=== PATIENT | female | born 1980 | race Caucasian/White ===

== ENCOUNTER 2018-08-17 04:45 | Emergency (ER) | payer OTHER ==
[~2018-08-17] VITALS: Ht 170.2 cm; Wt 117.9 kg
--- NOTE | 2018-08-17 04:45 | NUR ---
PT BIBA BLS. TAKEN TO BED 9
[2018-08-17 04:49] VITALS: BP 178/93
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
--- NOTE | 2018-08-17 05:05 | NUR ---
Dr. Chiu examining patient.
[2018-08-17] MEDS ORDERED: KETOROLAC 30 MG/ML VIAL IM ONE (05:10)
[2018-08-17] MEDS ORDERED: NYSTATIN POW 100 MU/GM 15 GM BTL TP STA (05:31)
--- NOTE | 2018-08-17 05:34 | NUR ---
X-Ray at bedside.
--- NOTE | 2018-08-17 05:34 | NUR ---
XRAY AT BEDSIDE.
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
[2018-08-17] MEDS ORDERED: HYDROcodone/APAP 5/325 MG 1 TAB TAB PO ONE (06:10)
--- NOTE | 2018-08-17 07:23 | NUR ---
REPORT GIVEN TO KAMILA HOYT AND KAMILA CORCORAN.
--- NOTE | 2018-08-17 07:25 | NUR ---
RECEIVED REPORT FROM PM NURSE AT BEDSIDE. PT PENDING FOR DISCHARGE. CONTACTING HER FAMILY FOR WHEEL CHAIR. PT ALERT AND OREINT, COMMUNICATING.
--- NOTE | 2018-08-17 07:35 | NUR ---
[facility] CALLED FOR PICK-UP, ETA 2HRS.
--- NOTE | 2018-08-17 08:22 | NUR ---
PT EATING BREAKFAST.
[2018-08-17 10:02] VITALS: BP 153/87
--- NOTE | 2018-08-17 10:02 | NUR ---
Patient discharged with v/s stable. Written and verbal after care instructions given and explained. Patient alert, oriented and verbalized understanding of instructions. Wheel Chair Assisted with to car. All questions addressed prior to discharge. ID band removed. Patient advised to follow up with PMD. Rx of NORCO AND COLACE given. Patient educated on indication of medication including possible reaction and side effects. Opportunity to ask questions provided and answered.
== END 2018-08-17 10:02 | disposition home or self-care (01) ==
LOC: MED 04:45
DX: S80.01XA Contusion of right knee, initial encounter (principal); K94.03 Colostomy malfunction; E11.9 Type 2 diabetes mellitus without complications; I10 Essential (primary) hypertension; Z88.8 Allergy status to other drugs, medicaments and biological substances; W19.XXXA Unspecified fall, initial encounter; Y93.89 Activity, other specified; Y92.89 Other specified places as the place of occurrence of the external cause; Y99.8 Other external cause status
CPT/HCPCS: 73560; 96372; 99284; J1885; Q0092